=== PATIENT | female | born 1995 | race Caucasian/White ===

== ENCOUNTER 2018-08-19 03:48 | Emergency (ER) | payer OTHER ==
--- NOTE | 2018-08-19 05:11 | PDOC ---
History of Present Illness - General Chief Complaint: Ear Problem Stated Complaint: EARACHE Time Seen by Provider: 08/19/18 04:48 History Source: Patient - History of Present Illness Initial Comments: 08/19/18 05:06 22 year old female right ear pain with bloody drainage today. patient reports decreased hearing in that ear. patient reports hearing a pop. patient reports some URI symptoms last week. denies fever/ chills , NAUsea, vomiting, headache 08/19/18 05:23 Past History - Past Medical History Allergies/Adverse Reactions: Allergies Allergy/AdvReac Type Severity Reaction Status Date / Time No Known Allergies Allergy Verified 04/01/13 10:11 Home Medications: Ambulatory Orders No Home Medications 06/16/13 Amoxicillin/Potassium Clav [Augmentin 875-125 Tablet] 1 each PO BID #20 tablet 08/19/18 Ofloxacin Otic [Floxin Otic -] 10 drop OT BID #1 bottle 08/19/18 Asthma: No Cancer: No Cardiac Disorders: No Diabetes: No HTN: No Seizures: No Thyroid Disease: No - Suicide/Smoking/Psychosocial Hx Smoking Status: No Smoking History: Never smoked Have you smoked in the past 12 months: No Number of Cigarettes Smoked Daily: 0 Hx Alcohol Use: No Drug/Substance Use Hx: No Substance Use Type: None Hx Substance Use Treatment: No Review of Systems - Review of Systems Able to Perform ROS?: Yes Is the patient limited Frisian proficient: No HEENTM: Yes: Ear Pain. No: Symptoms Reported, See HPI, Eye Pain, Blurred Vision , Tearing, Recent change in vision, Double Vision, Cataracts, Ocular Prothesis, Ear Discharge, Nose Pain, Nose Congestion, Tinnitus, Nose Bleeding, Hearing Loss , Throat Pain, Throat Swelling, Mouth Pain, Dental Problems, Difficulty Swallowing, Mouth Swelling, Other Respiratory: No: Symptoms reported, See HPI, Cough, Orthopnea, Shortness of Breath, SOB with Exertion, SOB at Rest, Stridor, Wheezing, Productive cough, Hemoptysis, Other Cardiac (ROS): No: Symptoms Reported, See HPI, Chest Pain, Edema, Irregular Heart Rate, Lightheadedness, Palpitations, Syncope, Chest Tightness, Other *Physical Exam - Physical Exam Respiratory/Chest: positive: Lungs Clear, Normal Breath Sounds Cardiovascular: positive: Regular Rhythm, Regular Rate Gastrointestinal/Abdominal: positive: Normal Bowel Sounds, Soft Extremity: positive: Normal Capillary Refill, Normal Inspection, Normal Range of Motion Integumentary: positive: Normal Color, Dry, Warm Neurologic: positive: Fully Oriented, Alert, Normal Mood/Affect Progress Note - Progress Note Progress Note: A: ruptured OM P: ofloxacin oral antibiotics pain control outpatient ENT follow up *DC/Admit/Observation/Transfer Diagnosis at time of Disposition: Otitis media, purulent, acute, with spontaneous rupture of TM Qualifiers: Laterality: right Recurrence: non-recurrent Qualified Code(s): H66.011 - Acute suppurative otitis media with spontaneous rupture of ear drum, right ear - Discharge Dispostion Disposition: HOME Condition at time of disposition: Fair - Prescriptions Prescriptions: Amoxicillin/Potassium Clav [Augmentin 875-125 Tablet] 1 each PO BID #20 tablet Ofloxacin Otic [Floxin Otic -] 10 drop OT BID #1 bottle - Referrals Referrals: Aida Bullard MD [Primary Care Provider] - Charlie Linder MD [Staff Physician] - Call tomorrow - Patient Instructions Printed Discharge Instructions: How to Instill Ear Drops Additional Instructions: please follow up with an ENT as soon as possible you may take ibuprofen every 6 hours as needed for ear pain instill 10 drops to right ear twice daily for 14 days take augmentin as prescribed. Additional Instructions: * Please call your personal physician to report your Emergency Department visit and to report your progress, if any. * If there is no improvement in symptoms in 2 days call your physician. * Return to the Emergency Department for any worsening symptoms. - Post Discharge Activity Forms/Work/School Notes: Back to Work
[2018-08-19] MEDS ORDERED: IBUPROFEN 400 MG TABLET (FP) PO ONE ×2 (05:15→05:22)
[2018-08-19] MEDS ORDERED: AMOX TR/POT CLAV 875MG/125MG TABLETS (FP) ONE (05:15)
[2018-08-19] MEDS ORDERED: AMOX TR/POT CLAV 875MG/125MG TABLETS (FP) PO ONE (05:20)
[2018-08-19] MEDS ORDERED: IBUPROFEN 600 MG TABLET (FP) PO ONE (05:20)
[2018-08-19 05:23] VITALS: BP 129/87; PULSE 82; TEMP 98.4; BMI 25.6
== END 2018-08-19 05:35 | disposition home or self-care (01) ==
LOC: JER 03:48
DX: H66.011 Acute suppurative otitis media with spontaneous rupture of ear drum, right ear (principal)
CPT/HCPCS: 99281-25

== ENCOUNTER 2020-07-14 17:52 | Inpatient (IN) | payer OTHER ==
[2020-07-14] MEDS ORDERED: PROMETHAZINE HCL 25 MG/1 ML VIAL IVPUSH ONE (18:20)
[2020-07-14] MEDS ORDERED: BUTORPHANOL TARTRATE 2 MG/ML VIAL IVPUSH ONE (18:20)
[2020-07-14] MEDS ORDERED: DINOPROSTONE 10 MG VAGINAL SUPPOSITORY VG ONE (18:21)
[2020-07-14 18:41] VITALS: BMI 35.6
[2020-07-14 20:26] LABS: BASO % 0.3 % (0-2.0); EOS % 0.9 % (0-4.5); HEMATOCRIT 38.4 % (32.4-45.2); HEMOGLOBIN 12.7 GM/dL (10.7-15.3); MCH 30.4 pg (25.7-33.7); MEAN CELL VOLUME 92.1 fl (80-96); MEAN PLT VOLUME 8.4 fl (7.5-11.1); NEUT % 73.8 % (42.8-82.8); PLATELET COUNT 228 K/MM3 (134-434); RBC 4.17 M/mm3 (3.60-5.2); WHITE BLOOD COUNT 9.3 K/mm3 (4.0-10.0)
[2020-07-14 20:32] LABS: INR 0.88 (0.83-1.09); PROTHROMBIN TIME (PATIENT) 10.7 SEC (9.7-13.0)
[2020-07-14 20:34] LABS: ACTIVATED PTT 28.3 SECONDS (25.2-36.5)
[2020-07-14 20:36] LABS: EPI CELLS 13 /uL (0-25.1); HYALINE CASTS 2 /uL (0-3.1); URINE APPEARANCE CLEAR; URINE BACTERIA 636 /uL (0-1359); URINE BILIRUBIN NEGATIVE (NEGATIVE); URINE COLOR YELLOW; URINE GLUCOSE (UA) NEGATIVE (NEGATIVE); URINE KETONE NEGATIVE (NEGATIVE); URINE LEUK ESTERASE NEGATIVE (NEGATIVE); URINE NITRITE NEGATIVE (NEGATIVE); URINE PROTEIN NEGATIVE (NEGATIVE); URINE RBC 3 /uL (0-23.9); URINE WBC 14 /uL (0-25.8)
[2020-07-14 20:43] LABS: POTASSIUM 3.8 mmol/L (3.5-5.1)
[2020-07-14 20:45] LABS: ALBUMIN 2.7 g/dl (3.4-5.0); BLOOD UREA NITROGEN 8.5 mg/dL (7-18); CALCIUM 8.5 mg/dL (8.5-10.1)
[2020-07-14 20:48] LABS: CREATININE 0.4 mg/dL (0.55-1.3); URIC ACID 3.8 mg/dL (2.6-7.2)
[2020-07-14 20:50] LABS: BILIRUBIN,TOTAL 0.3 mg/dL (0.2-1); TOT PROT 5.8 g/dl (6.4-8.2)
[2020-07-15] MEDS: DEXTROSE 5%-LACTATED RINGERS 1,000 ML IV SCH ×2 (05:58→18:39)
[2020-07-15] MEDS ORDERED: AMPICILLIN - 2 GM in SODIUM CHLORIDE 100 ML IVPB ONE (08:56)
[2020-07-15] MEDS ORDERED: AMPICILLIN SODIUM 2 GM VIAL ONE (08:58)
[2020-07-15] MEDS ORDERED: OXYTOCIN 30 UNITS in 0.9% NS 30 UNIT/500 ML INFUS.BAG IVPB SCH (09:00)
[2020-07-15] MEDS ORDERED: PROMETHAZINE HCL 25 MG/1 ML VIAL ONE (11:49)
[2020-07-15] MEDS ORDERED: BUTORPHANOL TARTRATE 2 MG/ML VIAL ONE (11:49)
[2020-07-15] MEDS: AMPICILLIN - 1 GM in SODIUM CHLORIDE 100 ML IVPB SCH ×3 (13:00→21:33)
[2020-07-15] MEDS ORDERED: AMPICILLIN SODIUM 1 GM VIAL ONE ×2 (13:04→16:30)
[2020-07-15] MEDS ORDERED: PCA PUMP NR ONE (14:08)
[2020-07-15] MEDS ORDERED: FENTANYL/BUPIVACAINE/NS/PF - PCEA - 50 ML DISP.SYRIN EP ONE (14:21)
[2020-07-15] MEDS ORDERED: ELECTROLYTE-148 SOLN 1,000 ML IV SCH (14:30)
[2020-07-15] MEDS ORDERED: NALOXONE HCL 0.4 MG/ML VIAL IVPUSH PRN (14:47)
[2020-07-15] MEDS ORDERED: FENTANYL/BUPIVACAINE/NS/PF - PCEA - 50 ML DISP.SYRIN EP SCH (15:00)
[2020-07-15] MEDS ORDERED: LIDOCAINE HCL 1% PRESERVATIVE FREE - 30ML VIAL ONE (16:30)
[2020-07-15] MEDS ORDERED: OXYTOCIN 20 UNITS in 0.9% NS 20 UNIT/1,000 ML INFUS.BAG IV ONE (16:30)
[2020-07-15] MEDS ORDERED: BENZOCAINE 28 GM HEMORRHOIDAL OINTMENT TP PRN (17:37)
[2020-07-15] MEDS ORDERED: BENZOCAINE 20% 57 GM BOTTLE TP PRN (17:37)
[2020-07-15] MEDS ORDERED: METHYLERGONOVINE MALEATE 0.2 MG/1 ML AMP IM PRN (17:37)
[2020-07-15] MEDS ORDERED: BISACODYL 10 MG SUPP.RECT RC PRN (17:37)
[2020-07-15] MEDS ORDERED: WITCH HAZEL 50% (TUCKS) 40 PAD/JAR PAD TP PRN (17:37)
[2020-07-15] MEDS ORDERED: OXYTOCIN 20 UNITS in 0.9% NS 20 UNIT/1,000 ML INFUS.BAG IV SCH (17:45)
[2020-07-16] MEDS: FERROUS SO4 325 MG TABLET (FP) PO SCH ×2 (08:06→17:33)
[2020-07-16 09:05] LABS: BASO % 0.3 % (0-2.0); EOS % 0.7 % (0-4.5); HEMATOCRIT 37.8 % (32.4-45.2); LYMPH % 18.9 % (8-40); MCH 29.6 pg (25.7-33.7); MCHC 31.9 g/dl (32.0-36.0); MEAN CELL VOLUME 92.9 fl (80-96); MEAN PLT VOLUME 8.3 fl (7.5-11.1); MONO % 6.4 % (3.8-10.2); NEUT % 73.7 % (42.8-82.8); PLATELET COUNT 185 K/MM3 (134-434); RBC 4.07 M/mm3 (3.60-5.2); RDW 14.6 % (11.6-15.6); WHITE BLOOD COUNT 13.1 K/mm3 (4.0-10.0)
[2020-07-16] MEDS: PRENATAL VITAMINS W/ FOLIC ACID TABLET (FP) PO SCH (09:39)
[2020-07-16] MEDS: ACETAMINOPHEN 325 MG TABLET (FP) PO PRN (09:41)
[2020-07-16] MEDS: IBUPROFEN 600 MG TABLET (FP) PO PRN (09:42)
[2020-07-16] MEDS ORDERED: SENNOSIDES/DOCUSATE COMBO (SENNA PLUS) TABLET (UD) PO PRN (22:00)
[2020-07-17] MEDS: ACETAMINOPHEN 325 MG TABLET (FP) PO PRN (08:39)
[2020-07-17] MEDS: IBUPROFEN 600 MG TABLET (FP) PO PRN (08:39)
[2020-07-17] MEDS: FERROUS SO4 325 MG TABLET (FP) PO SCH (08:39)
[2020-07-17] MEDS: PRENATAL VITAMINS W/ FOLIC ACID TABLET (FP) PO SCH (09:01)
[2020-07-17 11:10] VITALS: BP 126/86; PULSE 82; TEMP 98.4
== END 2020-07-17 13:55 | disposition home or self-care (01) | DRG 560 ==
LOC: JERBED 17:52 → JLDR 17:58 → J3W 07-15 20:40
PROVIDERS: ADMIT Obstetrics & Gynecology; ATTEND Obstetrics & Gynecology
PROC: 10E0XZZ Delivery of Products of Conception, External Approach (ICD-10-PCS; principal; 2020-07-15)
DX: O48.0 Post-term pregnancy (principal); Z3A.40 40 weeks gestation of pregnancy; Z37.0 Single live birth
CPT/HCPCS: 36415; 59409; 71046-TC-FY; 80053; 81003; 82977; 83010; 84550; 85025; 85045; 85610; 85730; 86780; 86850; 86900; 86901; C9803; U0003